=== PATIENT | female | born 1970 ===

== ENCOUNTER 2020-01-13 15:21 | Emergency (ER) | payer OTHER ==
[2020-01-13 15:34] VITALS: BP 119/68
--- NOTE | 2020-01-13 15:44 | UC ---
Skin Complaint HPI - HPI Summary HPI Summary: 49 year old female Injured middle finger on right hand today walking her dog.. - History of Current Complaint Chief Complaint: UCLowerExtremity Time Seen by Provider: 01/13/20 15:43 Stated Complaint: HAND INJURY Hx Obtained From: Patient Hx Last Menstrual Period: 01/21/2016 Pain Intensity: 4 - Allergy/Home Medications Allergies/Adverse Reactions: Allergies Allergy/AdvReac Type Severity Reaction Status Date / Time No Known Allergies Allergy Verified 02/04/16 11:01 Home Medications: Home Medications Ibuprofen TAB* [Motrin TAB*] 800 mg PO BID PRN 02/04/16 [History Confirmed 01/12] PMH/Surg Hx/FS Hx/Imm Hx - Surgical History Surgical History: None - Family History Known Family History: Positive: None - reviewed & noncontributory, Other - ovarian cancer - mother, at 59 & 4 paternal aunts - Social History Alcohol Use: None Substance Use Type: None Smoking Status (MU): Never Smoked Tobacco Physical Exam Vital Signs: Initial Vital Signs Temp 99.3 F 01/13/20 15:29 Pulse 71 01/13/20 15:29 Resp 18 01/13/20 15:29 BP 119/68 01/13/20 15:29 Pulse Ox 98 01/13/20 15:29 Discharge ED - Discharge Plan Referrals: Arian Khan MD [Primary Care Provider] -
== END 2020-01-13 16:39 | disposition home or self-care (01) ==
LOC: UCEAST 15:21
DX: S69.91XA Unspecified injury of right wrist, hand and finger(s), initial encounter (principal); X58.XXXA Exposure to other specified factors, initial encounter; Y93.K1 Activity, walking an animal; Y92.9 Unspecified place or not applicable
CPT/HCPCS: 73140; 99212; G0463

== ENCOUNTER 2020-01-21 08:37 | Day surgery (SDC) | payer OTHER ==
--- NOTE | 2020-01-20 15:59 | HP ---
PREOPERATIVE HISTORY AND PHYSICAL: DATE OF ADMISSION/SURGERY: 01/21/20 [facility] DATE OF OFFICE VISIT/ENCOUNTER: 01/20/20 ATTENDING SURGEON: Carolyn Hammer MD * (DICTATED BY FRANK DE DIOS) PROCEDURE: Closed reduction and percutaneous fixation, right long finger. HISTORY OF PRESENT ILLNESS: This is a 49-year-old female who sustained injury to her right long finger on 01/13/20. She was walking her dog and her finger got caught up in the dog's leash. She was seen initially at [facility] and had an x-ray, which showed a comminuted intraarticular fracture of the middle phalanx of the right long finger. This is her dominant hand. 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 After evaluation by Dr. Hammer, the patient has consented for surgical intervention for best outcome. PAST MEDICAL HISTORY: Unremarkable. PAST SURGICAL HISTORY: Umbilical hernia repair. CURRENT MEDICATIONS: Ibuprofen 200 mg p.r.n. ALLERGIES: No known drug allergies. FAMILY MEDICAL HISTORY: Noncontributory. 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 She denies tobacco use, recreational drug use, and does not drink alcohol. REVIEW OF SYSTEMS: Negative for general, cephalic, cardiovascular, respiratory , GI, , other musculoskeletal, integumentary, endocrine, neurologic, and hematologic symptoms. Infectious Disease: Negative for MRSA, hepatitis C, HIV. PHYSICAL EXAMINATION GENERAL: Well-developed, well-nourished 49-year-old female, in no acute distress. VITAL SIGNS: Height 5 feet 10 inches, weight 162 pounds. Pulse rate 70, blood pressure 128/70. HEENT: Normocephalic, atraumatic. Pupils are equal, round, and reactive to light and accommodation. Extraocular movements are intact. Throat is clear. NECK: Supple. No palpable lymph nodes. PULMONARY: Lungs are clear to auscultation bilaterally. No wheezes, rales, or rhonchi. CARDIOVASCULAR: Regular rate and rhythm. S1, S2. No murmurs, rubs, or gallops. No edema. ABDOMEN: Positive bowel sounds. Soft, nontender. NEUROLOGICAL: Alert and oriented x3. Cranial nerves II through XII are intact. Sensation is intact to light touch. MUSCULOSKELETAL: On exam of her right hand, she has significant ecchymosis of the long finger on the dorsal and volar aspects. When she tries make a fist, she has a lot of stiffness and her finger angulates toward her index finger. She has full extension of the finger, but there is some angulation present in extension as well. Skin is intact. Neurovascular function is intact. IMAGING STUDIES: X-rays AP, lateral and oblique of the right long finger show a comminuted intraarticular fracture of the middle phalanx at the DIP joint. The fracture fragments are angulated. IMPRESSION: Right long finger middle phalanx fracture. PLAN: The patient is scheduled to undergo a closed reduction and percutaneous fixation of the right long finger with Dr. Hammer on 01/21/20. She will return to the office 10 days postop for followup and suture removal. A prescription for Hardin was e-scribed to the patient's pharmacy for postoperative pain management. FRANK DE DIOS [id number]/[facility] #: [id number] AWAIS
[~2020-01-21 08:37] MED LIST: Buffered Lidocaine 1% SYRIN* 1 ML/SYRINGE INTRADERM ONE; Lactated Ringers 1000 ML Bag* 1,000 ML IV SCH
[2020-01-21] MEDS ORDERED: ceFAZolin 2 GM PREMIX in ORs 2 GM/50 ML BAG ONE (08:48)
[2020-01-21] MEDS ORDERED: Lidocaine 1% INJ* 10 MG/ML 30 ML SDV ONE (11:05)
[2020-01-21] MEDS ORDERED: Midazolam* 1 MG/ML 5 ML VIAL (5 MG) ONE (11:14)
[2020-01-21] MEDS ORDERED: fentaNYL* 50 MCG/ML 2 ML VIAL (100 MCG VIAL) ONE (11:14)
[2020-01-21] MEDS ORDERED: Ibuprofen TAB* 600 MG ONE (12:25)
--- NOTE | 2020-01-21 12:26 | OP ---
DATE OF OPERATION: 01/21/20 [facility] DATE OF : 68 SURGEON: Carolyn Hammer MD. JAVA PORTAL DEVELOPER: FRANK Bailey. ANESTHESIA: Local MAC. PRE-OP DIAGNOSIS: Right middle finger middle phalanx fracture intraarticular. POST-OP DIAGNOSIS: Right middle finger middle phalanx fracture intraarticular. OPERATIVE PROCEDURE: Close reduction and pinning, right middle finger middle phalanx. ESTIMATED BLOOD LOSS: Zero. INDICATIONS FOR PROCEDURE: Ivette is a 49-year-old female who injured her right middle finger when she got it caught in her dog's leash. She suffered a fracture of the middle phalanx. It is displaced and her finger is crooked. She presents for closed reduction and pinning. DESCRIPTION OF PROCEDURE: The patient was brought to the operating room, was given a sedation anesthetic and a digital block with 10 cc of 1% plain lidocaine. The fracture was reduced with traction and manipulation and with the guidance of C-arm. 3.035 inch K-wires were placed across the fracture fragments to secure them, and their position was checked on the C-arm in the AP and lateral views and found to be satisfactory. The pins were cut and dressed with Xeroform, 4x4, Kerlix, Coban, and an AlumaFoam splint. The patient tolerated the procedure well and was brought to the recovery room in good condition. [id number]/[facility] #: [id number] MTDD
[2020-01-21 12:31] VITALS: BP 100/56
== END 2020-01-21 12:29 | disposition home or self-care (01) ==
LOC: OREAST 08:37
PROVIDERS: ATTEND Orthopaedic Surgery
DX: S62.652A Nondisplaced fracture of middle phalanx of right middle finger, initial encounter for closed fracture (principal); W23.0XXA Caught, crushed, jammed, or pinched between moving objects, initial encounter; Y93.K1 Activity, walking an animal; Y92.9 Unspecified place or not applicable
CPT/HCPCS: 76000; A9270-GY; C1776; J0690; J2250; J3010